=== PATIENT | female | born 1950 | race Caucasian/White ===

== ENCOUNTER 2021-04-10 12:29 | Inpatient (IN) | payer OTHER, MEDICAID ==
[~2021-04-10] VITALS: Ht 162.6 cm; Wt 147.8 kg
[~2021-04-10 12:29] MED LIST: ADAL40KI2; AMLO-496; ASPI81CH43; BACL10TA; BUDE160A3; CHOL200010; DULO60CA; FEBU40TA; FOLI1TAB6; FURO1TAB32; GABA-339 PO; LEVO75TA47; METH2.5T30; METO2.5T; POTA8TAB2; PROAIR; TIOTCAP; TIZA2TAB3; TRAZ50TA2; TRIO1TP; VENL75CA78
[2021-04-10] MEDS ORDERED: ONDANSETRON HCL 4 MG/2 ML VIAL IV ONE (13:45)
[2021-04-10] MEDS ORDERED: SODIUM CHLORIDE 0.9% 1,000 ML IVB ONE (13:45)
[2021-04-10] MEDS ORDERED: KETOROLAC TROMETH 30 MG/ML 1ML VIAL IV ONE (13:45)
[2021-04-10 14:20] LABS: Basophils # (auto) 0.1 10 ^3/uL (0-0.2); Basophils % (auto) 1.2 % (0.0-2.0); Eosinophils # (auto) 0.3 10 ^3/uL (0-0.8); Eosinophils % (auto) 3.4 % (0.0-7.0); Hematocrit 42.5 % (36.0-46.0); Hemoglobin 14.3 g/dL (12.2-16.2); Lymphocytes # (auto) 2.3 10 ^3/uL (0.4-5.4); Lymphocytes % (auto) 27.1 % (10.0-50.0); Mean Corpuscular Hemoglobin 30.3 pg (28.0-32.0); Mean Corpuscular Hgb Conc. 33.7 g/dL (32.0-36.0); Mean Corpuscular Volume 89.8 fL (80.0-100.0); Monocytes # (auto) 0.7 10 ^3/uL (0-1.3); Monocytes % (auto) 8.7 % (0.0-12.0); Neutrophils % (auto) 59.6 % (37.0-80.0); Nucleated Red Blood Cells % 0.1 %; Platelet Count (auto) 175 10^3/uL (140-450); Red Blood Cells 4.74 10^6/uL (4.0-5.20); Red Cell Distribution Width 15.5 % (11.8-14.3); White Blood Cell 8.3 10^3/uL (4.4-10.8)
[2021-04-10 14:34] LABS: Albumin 3.8 g/dL (3.4-5.0); BUN/Creatinine Ratio 16.8; Calcium 9.2 mg/dL (8.5-10.1); Potassium 4.1 mmol/L (3.5-5.1)
[2021-04-10 14:36] LABS: Bilirubin, Total 0.9 mg/dL (0.2-1.0); Total Protein 7.2 g/dL (6.4-8.2)
[2021-04-10 15:02] LABS: Urine Amorphous Crystal FEW /hpf (None Seen); Urine Bacteria NONE SEEN /hpf (None Seen); Urine Blood Negative /uL (Negative); Urine Mucus FEW (None Seen); Urine Specific Gravity 1.016 (1.001-1.035); Urine WBC 2 /hpf (0 - 5)
[2021-04-10] MEDS ORDERED: MORPHINE SULF INJ 2 MG/ML SYRINGE 1ML IV PRN ×2 (15:45)
[2021-04-10] MEDS ORDERED: ACETAMINOPHEN 325 MG TAB PO PRN (15:45)
[2021-04-10] MEDS ORDERED: ENOXAPARIN SOD 100 MG/1 ML SYRINGE SC ONE (15:45)
[2021-04-10] MEDS ORDERED: ONDANSETRON HCL 4 MG/2 ML VIAL IV PRN (15:45)
[2021-04-10] MEDS ORDERED: NITROGLYCERIN 0.4 MG SL TAB SL PRN (15:45)
[2021-04-10 17:46] LABS: Partial Thromboplastin Time 24.4 sec (23.0-31.2)
[2021-04-10 17:52] LABS: Cholesterol 210 mg/dL (< 200); HDL Cholesterol 88 mg/dL (40-59); LDL Cholesterol 107 mg/dL (< 100); Triglycerides 97 mg/dL (< 150)
[2021-04-10] MEDS ORDERED: ADAL40IN2 SC (19:00)
[2021-04-10] MEDS ORDERED: LEVO75TA6 PO (19:00)
[2021-04-10] MEDS ORDERED: POTA1TAB64 (19:00)
[2021-04-10] MEDS ORDERED: EZET-10 PO (19:00)
[2021-04-10] MEDS ORDERED: SPIR25TA8 PO (19:00)
[2021-04-10] MEDS ORDERED: DULO1CAP6 PO (19:00)
[2021-04-10] MEDS ORDERED: FURO40TA4 PO (19:00)
[2021-04-10] MEDS ORDERED: METH2.5T PO (19:00)
[2021-04-10 22:07] VITALS: BP 111/42
[2021-04-10] MEDS ORDERED: CHOL20007 PO (22:40)
[2021-04-10] MEDS ORDERED: APRE30TA PO (22:40)
[2021-04-10] MEDS ORDERED: LISI-275 PO (22:40)
[2021-04-10] MEDS: HYDROcodone-ACET 5/325MG TAB PO PRN (22:45)
[2021-04-10 22:47] VITALS: BP 111/42
[2021-04-11] MEDS: HYDROcodone-ACET 5/325MG TAB PO PRN ×2 (04:45→14:26)
[2021-04-11 05:01] VITALS: BP 111/65
[2021-04-11 05:54] LABS: Basophils # (auto) 0.1 10 ^3/uL (0-0.2); Basophils % (auto) 0.9 % (0.0-2.0); Eosinophils # (auto) 0.3 10 ^3/uL (0-0.8); Eosinophils % (auto) 4.5 % (0.0-7.0); Hematocrit 38.7 % (36.0-46.0); Hemoglobin 13.4 g/dL (12.2-16.2); Lymphocytes # (auto) 1.9 10 ^3/uL (0.4-5.4); Lymphocytes % (auto) 30.7 % (10.0-50.0); Mean Corpuscular Hemoglobin 31.2 pg (28.0-32.0); Mean Corpuscular Hgb Conc. 34.7 g/dL (32.0-36.0); Mean Corpuscular Volume 90.1 fL (80.0-100.0); Monocytes # (auto) 0.6 10 ^3/uL (0-1.3); Monocytes % (auto) 9.6 % (0.0-12.0); Neutrophils # (auto) 3.4 10 ^3/uL (1.6-8.6); Neutrophils % (auto) 54.3 % (37.0-80.0); Nucleated Red Blood Cells % 0.2 %; Platelet Count (auto) 139 10^3/uL (140-450); Red Cell Distribution Width 15.6 % (11.8-14.3); White Blood Cell 6.2 10^3/uL (4.4-10.8)
[2021-04-11 06:11] LABS: Potassium 4.2 mmol/L (3.5-5.1)
[2021-04-11 06:15] LABS: BUN/Creatinine Ratio 21.2; Calcium 8.9 mg/dL (8.5-10.1)
[2021-04-11] MEDS ORDERED: GIVE UN DILUTED IV ONE (08:30)
[2021-04-11] MEDS ORDERED: ADENOSINE IV ONE (08:30)
[2021-04-11 09:00] VITALS: BP 124/67
[2021-04-11] MEDS ORDERED: FAMOTIDINE 20 MG TAB PO SCH (10:00)
[2021-04-11] MEDS ORDERED: ENOXAPARIN SOD 40 MG/0.4 ML SYRINGE SC SCH (10:00)
[2021-04-11] MEDS ORDERED: RAMIPRIL 10 MG CAP PO SCH (10:00)
[2021-04-11] MEDS ORDERED: FUROSEMIDE 20 MG/2 ML VIAL IV SCH (10:00)
[2021-04-11 12:28] VITALS: BP 134/70
[2021-04-11] MEDS ORDERED: METHOTREXATE 2.5 MG TAB PO SCH (12:30)
[2021-04-11] MEDS ORDERED: LEVOTHYROXINE SODIUM 50 MCG TAB PO ONE (13:30)
[2021-04-11] MEDS ORDERED: ASPirin 81 mg TAB PO ONE (13:30)
[2021-04-11] MEDS ORDERED: CHOLECALCIFEROL (VITD3) 2,000 UNIT CAP/TAB PO ONE (13:30)
[2021-04-11] MEDS ORDERED: LISINOPRIL 5 MG TAB PO ONE (13:30)
[2021-04-11] MEDS ORDERED: DULoxetine HCL 30 MG CAP PO ONE (13:30)
[2021-04-11] MEDS ORDERED: FUROSEMIDE 20 MG/2 ML VIAL IV ONE (13:30)
[2021-04-11 17:00] VITALS: BP 121/65
[2021-04-11 19:10] VITALS: BP 121/65
[2021-04-11 19:17] VITALS: BP 121/65
[2021-04-12] MEDS ORDERED: LEVOTHYROXINE SODIUM 50 MCG TAB PO SCH (07:00)
[2021-04-12] MEDS ORDERED: SPIRONOLACTONE 25 MG TAB PO SCH ×2 (10:00)
[2021-04-12] MEDS ORDERED: CHOLECALCIFEROL (VITD3) 2,000 UNIT CAP/TAB PO SCH (10:00)
[2021-04-12] MEDS ORDERED: DULoxetine HCL 30 MG CAP PO SCH (10:00)
[2021-04-12] MEDS ORDERED: ASPirin 81 mg TAB PO SCH (10:00)
[2021-04-12] MEDS ORDERED: LISINOPRIL 5 MG TAB PO SCH (10:00)
[2021-04-12] MEDS ORDERED: FUROSEMIDE 40 MG TAB PO SCH (10:00)
== END 2021-04-11 20:40 | disposition home or self-care (01) | DRG 311 ==
LOC: ER 12:29 → TELE 15:38 → TELE-CENTR 20:29
PROVIDERS: ADMIT Nurse Practitioner Acute Care; ATTEND Hospitalist
DX: I24.9 Acute ischemic heart disease, unspecified (principal); L03.115 Cellulitis of right lower limb; I50.22 Chronic systolic (congestive) heart failure; Z68.43 Body mass index [BMI] 50.0-59.9, adult; L03.116 Cellulitis of left lower limb; Z20.822 Contact with and (suspected) exposure to COVID-19; E03.9 Hypothyroidism, unspecified; K42.9 Umbilical hernia without obstruction or gangrene; E66.9 Obesity, unspecified; I11.0 Hypertensive heart disease with heart failure; J44.9 Chronic obstructive pulmonary disease, unspecified; E78.5 Hyperlipidemia, unspecified; I87.2 Venous insufficiency (chronic) (peripheral); K76.0 Fatty (change of) liver, not elsewhere classified; R07.89 Other chest pain; M10.9 Gout, unspecified; M19.90 Unspecified osteoarthritis, unspecified site; Z90.710 Acquired absence of both cervix and uterus; Z90.89 Acquired absence of other organs; Z88.0 Allergy status to penicillin; Z88.1 Allergy status to other antibiotic agents; Z88.2 Allergy status to sulfonamides; Z79.899 Other long term (current) drug therapy; Z87.442 Personal history of urinary calculi; Z98.51 Tubal ligation status; Z83.3 Family history of diabetes mellitus; Z86.16 Personal history of COVID-19; Z85.42 Personal history of malignant neoplasm of other parts of uterus; Z82.49 Family history of ischemic heart disease and other diseases of the circulatory system
CPT/HCPCS: 36415; 71045; 74176; 78452; 80048; 80053; 80061; 81001; 83690; 83880; 84443; 84484; 85025; 85379; 85610; 85730; 87426; 93005; 93017; 93306; 96361; 96372; 96374; 96375; G0378; J0153; J1885; J2405

== ENCOUNTER 2021-08-31 12:02 | Emergency (ER) | payer OTHER ==
[~2021-08-31] VITALS: Ht 157.5 cm; Wt 142.0 kg
[~2021-08-31 12:02] MED LIST changes: +ADAL40IN2 SC; -ADAL40KI2; -AMLO-496; +APRE30TA PO; -BACL10TA; +CHOL20007 PO; +DULO1CAP6 PO; -DULO60CA; -FEBU40TA; -FURO1TAB32; +FURO40TA4 PO; -GABA-339 PO; -LEVO75TA47; +LEVO75TA6 PO; +LISI-275 PO; +METH2.5T PO; -METH2.5T30; -METO2.5T; -PROAIR; +SPIR25TA8 PO; -TIOTCAP; -TIZA2TAB3; -TRAZ50TA2; -TRIO1TP; -VENL75CA78
[2021-08-31 14:53] VITALS: BP 142/78
[2021-08-31] MEDS ORDERED: LIDOCAINE 1% HCL (LOCAL ANESTH.) INJ 20ML MDV ONE (15:45)
[2021-08-31] MEDS ORDERED: cefTRIAXone SOD 1,000 MG VL IM ONE (15:45)
== END 2021-08-31 16:12 | disposition home or self-care (01) ==
LOC: ER 12:02 → EDSEX 12:02 → EDBD 12:02 → ER 16:12
DX: S02.2XXB Fracture of nasal bones, initial encounter for open fracture (principal); S01.21XA Laceration without foreign body of nose, initial encounter; J44.9 Chronic obstructive pulmonary disease, unspecified; I10 Essential (primary) hypertension; M10.9 Gout, unspecified; E03.9 Hypothyroidism, unspecified; Z90.710 Acquired absence of both cervix and uterus; Z90.89 Acquired absence of other organs; Z79.82 Long term (current) use of aspirin; Z79.899 Other long term (current) drug therapy; Z88.1 Allergy status to other antibiotic agents; Z88.2 Allergy status to sulfonamides; Z88.8 Allergy status to other drugs, medicaments and biological substances; W18.39XA Other fall on same level, initial encounter; Y93.89 Activity, other specified; Y92.89 Other specified places as the place of occurrence of the external cause; Y99.8 Other external cause status
CPT/HCPCS: 12011; 70450; 70486; 96372; 99285; J0696; J2001

== ENCOUNTER 2021-09-13 11:57 | Emergency (ER) | payer OTHER ==
[~2021-09-13] VITALS: Ht 165.1 cm; Wt 140.6 kg
[2021-09-13 14:26] LABS: Basophils # (auto) 0 10 ^3/uL (0-0.2); Basophils % (auto) 0.6 % (0.0-2.0); Eosinophils # (auto) 0 10 ^3/uL (0-0.8); Eosinophils % (auto) 0.3 % (0.0-7.0); Hematocrit 44.2 % (36.0-46.0); Hemoglobin 14.8 g/dL (12.2-16.2); Lymphocytes # (auto) 1.1 10 ^3/uL (0.4-5.4); Lymphocytes % (auto) 18.1 % (10.0-50.0); Mean Corpuscular Hgb Conc. 33.5 g/dL (32.0-36.0); Mean Corpuscular Volume 89.4 fL (80.0-100.0); Monocytes # (auto) 0.9 10 ^3/uL (0-1.3); Monocytes % (auto) 14.6 % (0.0-12.0); Neutrophils # (auto) 3.9 10 ^3/uL (1.6-8.6); Neutrophils % (auto) 66.4 % (37.0-80.0); Nucleated Red Blood Cells % 0.3 %; Red Blood Cells 4.94 10^6/uL (4.0-5.20); Red Cell Distribution Width 15.1 % (11.8-14.3); White Blood Cell 5.8 10^3/uL (4.4-10.8)
[2021-09-13 14:39] LABS: Albumin 3.2 g/dL (3.4-5.0); Calcium 8.8 mg/dL (8.5-10.1); Potassium 3.2 mmol/L (3.5-5.1)
[2021-09-13 14:48] LABS: Bilirubin, Total 1.2 mg/dL (0.2-1.0); CRP High Sensitivity 2.31 mg/dL (< 0.3); Total Protein 7.1 g/dL (6.4-8.2)
[2021-09-13 15:15] VITALS: BP 122/75
== END 2021-09-13 15:27 | disposition home or self-care (01) ==
LOC: ER 11:57
DX: U07.1 COVID-19 (principal); J44.9 Chronic obstructive pulmonary disease, unspecified; I10 Essential (primary) hypertension; M10.9 Gout, unspecified; E03.9 Hypothyroidism, unspecified; Z87.891 Personal history of nicotine dependence; Z90.710 Acquired absence of both cervix and uterus; Z90.89 Acquired absence of other organs
CPT/HCPCS: 36415; 71045; 80053; 82728; 83880; 85025; 85379; 86141

== ENCOUNTER 2024-05-13 09:27 | Emergency (ER) | payer OTHER ==
[~2024-05-13] VITALS: Ht 162.6 cm; Wt 125.9 kg
[~2024-05-13 09:27] MED LIST changes: +FOLI-119; -FOLI1TAB6; -POTA8TAB2; +POTA8TAB38
[2024-05-13 10:00] VITALS: PULSE 64; RESP 16; O2SAT 96
[2024-05-13] MEDS: levoFLOXacin 500 MG TAB PO ONE (10:01)
[2024-05-13] MEDS ORDERED: LEVO500T91 PO (10:02)
[2024-05-13 10:04] VITALS: BP 118/61; PULSE 66; RESP 16; O2SAT 96
== END 2024-05-13 10:09 | disposition home or self-care (01) ==
LOC: ER 09:27
DX: L03.116 Cellulitis of left lower limb (principal); M79.662 Pain in left lower leg; R22.42 Localized swelling, mass and lump, left lower limb; I10 Essential (primary) hypertension; M10.9 Gout, unspecified; J44.9 Chronic obstructive pulmonary disease, unspecified; M19.90 Unspecified osteoarthritis, unspecified site; Z87.442 Personal history of urinary calculi; Z98.890 Other specified postprocedural states; Z87.891 Personal history of nicotine dependence; Z88.1 Allergy status to other antibiotic agents; Z88.8 Allergy status to other drugs, medicaments and biological substances; Z79.899 Other long term (current) drug therapy

== ENCOUNTER 2024-09-11 15:34 | Emergency (ER) | payer OTHER ==
[~2024-09-11] VITALS: Ht 162.6 cm; Wt 127.0 kg
[~2024-09-11 15:34] MED LIST changes: +LEVO500T91 PO
[2024-09-11] MEDS: HYDROcodone-ACET 10/325MG TAB PO ONE (16:09)
[2024-09-11 16:10] VITALS: BP 147/63; PULSE 56; RESP 16; O2SAT 98
[2024-09-11] MEDS ORDERED: HYDR-4798 PO (17:10)
== END 2024-09-11 18:34 | disposition home or self-care (01) ==
LOC: ER 15:34
DX: S62.307A Unspecified fracture of fifth metacarpal bone, left hand, initial encounter for closed fracture (principal); S09.90XA Unspecified injury of head, initial encounter; I10 Essential (primary) hypertension; J44.9 Chronic obstructive pulmonary disease, unspecified; E07.9 Disorder of thyroid, unspecified; M10.9 Gout, unspecified; Z79.51 Long term (current) use of inhaled steroids; Z79.82 Long term (current) use of aspirin; Z79.899 Other long term (current) drug therapy; Z90.710 Acquired absence of both cervix and uterus; Z88.1 Allergy status to other antibiotic agents; Z88.2 Allergy status to sulfonamides; Z87.891 Personal history of nicotine dependence; W01.0XXA Fall on same level from slipping, tripping and stumbling without subsequent striking against object, initial encounter; Y93.89 Activity, other specified; Y92.89 Other specified places as the place of occurrence of the external cause; Y99.8 Other external cause status
CPT/HCPCS: 29125; 70450; 73110; 73130